=== PATIENT | male | born 1975 | race Caucasian/White ===

== ENCOUNTER → 2017-10-25 09:14 | Outpatient (CLI) | payer OTHER, SELFPAY ==
[2017-10-25 11:32] LABS: Free T3, Triiodothyronine Free 3.46 pg/mL (2.77-5.27); Free T4, Direct Thyroxine 0.87 ng/dL (0.78-2.19)
[2017-10-25 11:45] LABS: Thyroid Stimulating Hormone 1.22 uIU/mL (0.47-4.68)
== END ==
PROVIDERS: PCP Family Medicine; Visit Provider Family Medicine
DX: E04.1 Nontoxic single thyroid nodule (principal)
CPT/HCPCS: 36415; 84439; 84443; 84481

== ENCOUNTER 2018-07-17 09:20 | Day surgery (SDC) | payer OTHER, SELFPAY ==
--- NOTE | 2018-07-17 08:16 | PM.HP.1 ---
History of Present Illness Date Patient Seen: 07/17/18 Chief complaint: [id number] COLONOSCOPY Narrative: 42-year-old male with a family history of colon cancer in multiple relatives including his father at age 50, grandfather age 63, and age 65 who also has a history of colonoscopy in 2016 in [place], [place] with a history of polyps. Patient is now here for colon polyp surveillance. He has no significant past medical history Patient History Family & Social History Family History (Updated 10/12/17 @ 10:50 by Alka Greenfield LPN) Mother Age: 60 Hypertension Father Cancer Grandfather Stroke Grandmother Cancer Grandfather Cancer Grandmother Parkinson's disease Tobacco & Substance use: Smoking Status Never smoker alcohol intake current Meds Home Medications Medication Instructions Recorded Confirmed Type aspirin 81 mg PO QDAY #0 07/18/16 07/17/18 History Allergies Allergy/AdvReac Type Severity Reaction Status Date / Time penicillin G [PENICILLIN G] Allergy Severe turned Verified 07/17/18 09:29 blue per patient Review of Systems Review of Systems All systems reviewed & are unremarkable except as noted in HPI and below Exam Narrative Exam Narrative: General: Patient is overweight, not in apparent distress Cardiovascular: Regular rate and rhythm, no murmurs, rubs, or gallops; no evidence of edema; no palpable abdominal aortic aneurysm Gastrointestinal: Normoactive bowel sounds, soft, nontender, nondistended, no rebound tenderness, no hepatosplenomegaly, no evidence of hernia Assessment & Plan Assessment & Plan narrative: 42-year-old male with a family history of colon cancer in multiple relatives including his father as well as a prior history of colon polyps in 2016 who is here for colon polyp surveillance. Prior colonoscopy record not available for review Regarding the procedure(s), the risks and potential complications, benefits, and alternatives (including not doing the procedure) were discussed with the patient. The risks include but are not limited to bleeding, splenic injury, infection, perforation which may require surgical intervention, missed lesions, and adverse reactions to sedative medicines. After a question and answer period, the patient agreed to proceed with the procedure(s) and gives informed consent.
[2018-07-17] MEDS: SODIUM CHLORIDE 0.9% 1,000 ML 70 ML IV (09:28)
[2018-07-17 09:30] VITALS: BP 128/78; PULSE 59; RESP 16; TEMP 36.9; O2SAT 99; BMI 27.4
--- NOTE | 2018-07-17 10:05 | PM.OP.ENDO ---
Operative Date/Time/Diagnoses Date of procedure: 07/17/18 Procedure Notes Procedure in detail: Surgeon: Saul Ann MD Procedure: Colonoscopy Preoperative diagnosis: Colon polyp surveillance; family history colon cancer in father at age 50 Postoperative diagnosis: Grade 2 internal hemorrhoids Medications: Conscious sedation using 6 mg IV of Midazolam and 100 mcg IV of Fentanyl Preanesthesia Assessment An H and P was performed/updated and the Px?s ASA class is 1. The procedure was discussed in detail with the patient. The potential risks and complications including infection, bleeding, missed lesions, perforation, need for surgery in case of perforation, prolonged hospital stay, and were explained. A brief question and answer period was allotted and once all questions were answered, informed consent was obtained. The patient was brought back to the procedure room and placed on standard monitoring. The patient?s vital signs were monitored continuously throughout the entire procedure. Prior to starting, a timeout was performed to confirm the patient?s identity, allergies, medications, and procedure. Procedure in detail The patient was placed in left lateral decubitus position and once adequate sedation was obtained a ENMA was performed. The digital rectal examination did not reveal any palpable lesions. The tip of the colonoscope was placed in the anal canal and advanced without difficulty all the way to the cecum which was identified by the appendiceal orifice and the ileocecal valve. Careful examination of all maradiaga of the colon was performed with irrigation of any residual stool. The colonic mucosa appeared normal with no evidence of polyps. Retroflexion was performed in the rectum which revealed grade 2 hemorrhoids. The patient tolerated the procedure well and will be brought back to the recovery area to be discharged once criteria are met. The prep was judged to be good/excellent and adequate to identify polyps less than 5 mm. The withdrawal time was 9 minutes. The total physician intraservice time was 14 minutes. Complications There were no complications and estimated blood loss was zero. Recommendations: Resume previous diet Continue outPx medications Repeat colonoscopy in 5 years An emergency contact number was given to the patient for any complications related to the procedure
[2018-07-17] MEDS: fentaNYL 250 MCG/5 ML INJ IV (10:06)
[2018-07-17] MEDS: MIDAZOLAM 5 MG/5 ML VIAL IV ×2 (10:06→10:09)
[2018-07-17 10:22] VITALS: BP 102/63; PULSE 70; RESP 21; TEMP 36.2; O2SAT 95
[2018-07-17 10:27] VITALS: BP 106/64; PULSE 68; RESP 15; O2SAT 96
[2018-07-17 10:32] VITALS: BP 107/63; PULSE 69; RESP 15; O2SAT 96
[2018-07-17 10:49] VITALS: BP 105/67; PULSE 64; RESP 9; O2SAT 98
[2018-07-17 11:00] VITALS: BP 118/71; PULSE 74; RESP 15; TEMP 36.7; O2SAT 98
== END 2018-07-17 11:12 | disposition home or self-care (01) ==
PROVIDERS: PCP Family Medicine; Visit Provider Internal Medicine Gastroenterology
PROC: 0DJD8ZZ Inspection of Lower Intestinal Tract, Via Natural or Artificial Opening Endoscopic (ICD-10-PCS; CPT 45378; principal; 2018-07-17 10:30)
DX: Z86.010 Personal history of colon polyps (principal); Z80.0 Family history of malignant neoplasm of digestive organs; K64.1 Second degree hemorrhoids
CPT/HCPCS: 45378; J2250; J3010

== ENCOUNTER → 2019-09-18 10:40 | Outpatient (CLI) | payer OTHER, SELFPAY ==
[2019-09-18 11:08] LABS: Hematocrit 46.3 % (41-53); Hemoglobin 15.8 g/dL (13.5-17.5); Mean Corpuscular HGB Conc 34.2 % (30-36); Mean Corpuscular Hemoglobin 30.1 PG (26-34); Platelet Count 235 X10^3/uL (150-400); Red Blood Cell Count 5.26 X10^6/uL (4.5-5.9); Red Cell Distribution Width 13.6 % (11.6-14.8); White Blood Cell Count 5.6 X10^3/uL (4.5-11.0)
[2019-09-18 12:06] LABS: Cholesterol 200 mg/dL (140-199); HDL Cholesterol 55 mg/dL (40-60); LDL Cholesterol Calculated 127 mg/dL (<100); Triglycerides 92 mg/dL (35-150)
[2019-09-18 13:00] LABS: Vitamin B12 321 pg/mL (239-931)
== END ==
PROVIDERS: PCP Student in an Organized Health Care Education/Training Program; Referring Provider Student in an Organized Health Care Education/Training Program; Visit Provider Student in an Organized Health Care Education/Training Program
DX: E04.1 Nontoxic single thyroid nodule (principal); F34.1 Dysthymic disorder; F41.1 Generalized anxiety disorder
CPT/HCPCS: 36415; 80061; 82607; 84443; 85027

== ENCOUNTER → 2019-09-22 14:26 | Outpatient (CLI) | payer OTHER, SELFPAY ==
--- NOTE | 2019-09-22 14:27 | DI.US.S_ITS ---
PROCEDURE: US THYROID INDICATIONS: NODULES TECHNIQUE: Real-time scanning was performed of the thyroid gland, with image documentation. COMPARISON: [facility] Ultrasound, US, US THYROID, 09/20/2017, 15:11. [facility], US, THYROID, 07/25/2016, 7:50. FINDINGS: Right: Thyroid lobe measures 5.3 x 1.7 x 2.3 cm, and is homogeneous in echotexture. Multiple sub 5 mm nodules Left: Thyroid lobe measures 4.6 x 1.5 x 1.5 cm, and is homogenous in echotexture. Redemonstrated. Multiple sub 5 mm nodules redemonstrated. Isthmus: 1.0 mm thick. Nodule number: 1 Location: Isthmus Size: Unchanged 0.9 x 0.5 x 1.0 cm. Composition: Solid Echogenicity: Hypoechoic Shape: wider than tall. Margins: Smooth Echogenic foci: None Total points: 4 ACR TI-RADS category: Moderately suspicious IMPRESSION: 1. Multiple sub 5 mm nodules redemonstrated and there has been no change in 1 cm isthmus nodule. Recommend continued followup ultrasound as detailed below. 2. Hypoechoic nodule adjacent to the posterior aspect of the mid right thyroid suspicious for parathyroid adenoma measuring up to 13 mm. Recommend correlation with serum calcium levels and if indicated, nuclear medicine parathyroid imaging could be performed for confirmation. ACR TI-RADS definitions and recommendations: TI-RADS 1 (benign): 0 points. FNA not needed. TI-RADS 2 (not suspicious): 2 points. FNA not needed. TI-RADS 3 (mildly suspicious): 3 points. * FNA if 2.5 cm or larger, follow up if 1.5 cm or larger (at 1, 3, and 5 years). TI-RADS 4 (moderately suspicious): 4-6 points. * FNA if 1.5 cm or larger, follow up if 1 cm or larger (at 1, 2, 3, and 5 years). TI-RADS 5 (highly suspicious): 7 points or more. * FNA if 1 cm or larger, follow up if 0.5 cm or larger (every year for 5 years). Dictated by: Ja ROLAND Interpreted: Sunday Arciniega MD on 09/22/2019 at 16:11 Approved by: Sunday Arciniega M.D. on 09/22/2019 at 17:40
== END ==
PROVIDERS: PCP Student in an Organized Health Care Education/Training Program; Referring Provider Student in an Organized Health Care Education/Training Program; Visit Provider Student in an Organized Health Care Education/Training Program
DX: E04.1 Nontoxic single thyroid nodule (principal)
CPT/HCPCS: 76536

== ENCOUNTER → 2019-09-24 07:16 | Outpatient (CLI) | payer OTHER, SELFPAY ==
[2019-09-25 09:39] LABS: Calcium 9.2 mg/dL (8.7-10.2); Parathyroid Hormone, Intact 48 pg/mL (15-65)
== END ==
PROVIDERS: PCP Student in an Organized Health Care Education/Training Program; Referring Provider Student in an Organized Health Care Education/Training Program; Visit Provider Student in an Organized Health Care Education/Training Program
DX: E21.5 Disorder of parathyroid gland, unspecified (principal)
CPT/HCPCS: 36415; 82310; 83970

== ENCOUNTER → 2020-10-19 13:36 | Outpatient (CLI) | payer OTHER, SELFPAY ==
--- NOTE | 2020-10-19 13:36 | DI.US.S_ITS ---
PROCEDURE: US THYROID INDICATIONS: F/U NODULES TECHNIQUE: Real-time scanning was performed of the thyroid gland, with image documentation. COMPARISON: [facility] Ultrasound, US, US THYROID, 09/20/2017, 15:11. [place], THYROID UPTAKE AND SCAN, 07/25/2016, 8:20. [facility], US, THYROID, 07/25/2016, 7:50. [facility], US, US THYROID, 09/22/2019, 14:44. FINDINGS: Right: Thyroid lobe measures 5.5 x 1.5 x 1.8 cm, and is homogeneous in echotexture. Possible parathyroid adenoma seen on prior examination not definitively seen. Left: Thyroid lobe measures 3.9 x 1.2 x 1.5 cm, and is homogenous in echotexture. Isthmus: 3.1 mm thick. Nodule number: 1 Location: Left isthmus Size: Unchanged to slightly increased at 0.8 x 0.5 x 0.8 cm. Composition: Predominantly solid Echogenicity: Isoechoic Shape: wider than tall. Margins: Smooth Echogenic foci: None Total points: 3 ACR TI-RADS category: Mildly suspicious Nodule number: 2 Location: Left isthmus Size: 0.6 x 0.3 x 0.5 cm. Composition: Predominantly solid Echogenicity: Hypoechoic Shape: wider than tall. Margins: Smooth Echogenic foci: None Total points: 4 ACR TI-RADS category: Moderately suspicious IMPRESSION: 1. There is a new subcentimeter left thyroid nodule and the previously visualized left isthmus nodule is unchanged to slightly increased in size. Given the small size, no additional follow-up is warranted. 2. Possible right parathyroid adenoma seen on prior examination is not definitively seen on today's exam. ACR TI-RADS definitions and recommendations: TI-RADS 1 (benign): 0 points. FNA not needed. TI-RADS 2 (not suspicious): 2 points. FNA not needed. TI-RADS 3 (mildly suspicious): 3 points. * FNA if 2.5 cm or larger, follow up if 1.5 cm or larger (at 1, 3, and 5 years). TI-RADS 4 (moderately suspicious): 4-6 points. * FNA if 1.5 cm or larger, follow up if 1 cm or larger (at 1, 2, 3, and 5 years). TI-RADS 5 (highly suspicious): 7 points or more. * FNA if 1 cm or larger, follow up if 0.5 cm or larger (every year for 5 years). Dictated by: Ja Saucedo RRA Interpreted: Linda Jackson MD on 10/19/2020 at 16:26 Transcribed by: MARY on 10/19/2020 at 16:30 Approved by: Linda Jackson M.D. on 10/19/2020 at 17:45
== END ==
PROVIDERS: PCP Student in an Organized Health Care Education/Training Program; Referring Provider Student in an Organized Health Care Education/Training Program; Visit Provider Student in an Organized Health Care Education/Training Program
DX: E04.2 Nontoxic multinodular goiter (principal)
CPT/HCPCS: 76536

== ENCOUNTER → 2021-03-12 08:26 | Outpatient (CLI) | payer OTHER, SELFPAY ==
[2021-03-12 09:42] LABS: Add Manual Diff / Slide Review NO; Basophils Absolute Auto 0 /uL (0-100); Eosinophils Absolute Auto 0 /uL (0-450); Eosinophils Percent Auto 1.1 % (2-4); Hematocrit 43.1 % (41-53); Hemoglobin 14.6 g/dL (13.5-17.5); Lymphocytes Absolute Auto 1300 /uL (1100-4500); Lymphocytes Percent Auto 36.3 % (25-40); Mean Corpuscular HGB Conc 33.9 % (30-36); Mean Corpuscular Hemoglobin 30.2 PG (26-34); Mean Corpuscular Volume 88.9 fL (80-100); Monocytes Absolute Auto 200 /uL (0-900); Monocytes Percent Auto 5.8 % (3-14); Neutrophils Absolute Auto 1900 /uL (1500-7000); Neutrophils Percent Auto 55.8 % (50-75); Platelet Count 203 X10^3/uL (150-400); Red Blood Cell Count 4.85 X10^6/uL (4.5-5.9); Red Cell Distribution Width 13.4 % (11.6-14.8); White Blood Cell Count 3.5 X10^3/uL (4.5-11.0)
[2021-03-12 09:53] LABS: Hemoglobin A1C% w Est Avg Glu 4.7 % (4.0-6.0)
[2021-03-12 11:05] LABS: Iron 136 ug/dL (49-181)
[2021-03-12 11:19] LABS: HEMOLYSIS < 15 (0-50); Percent Iron Saturation 56 % (20-50); Total Iron Binding Capacity 243 ug/dL (261-462); Transferrin 189 mg/dL (206-381)
[2021-03-12 11:22] LABS: Alanine Aminotransferase 13 IU/L (<50); Albumin 4.4 g/dL (3.5-5.0); Albumin Globulin Ratio 1.8 (1.0-2.8); Alkaline Phosphatase 56 U/L (38-126); Aspartate Aminotransferase 23 IU/L (17-59); BUN Creatinine Ratio 22.8 (6-22); Bilirubin Total 1.2 mg/dL (0.2-1.3); Blood Urea Nitrogen 18 mg/dL (9-20); Calcium 9.8 mg/dL (8.4-10.2); Carbon Dioxide 31 mmol/L (22-32); Chloride 104 mmol/L (98-107); Cholesterol 154 mg/dL (140-199); Estimated Glomerular Filt Rate > 60.0 mL/min (>60); Globulin 2.4 g/dL (1.7-4.1); Glucose 81 mg/dL (70-100); HDL Cholesterol 57 mg/dL (40-60); HEMOLYSIS < 15 (0-50); LDL Cholesterol Calculated 88 mg/dL (<100); Potassium 4.8 mmol/L (3.4-5.1); Sodium 140 mmol/L (137-145); Total Protein 6.8 g/dL (6.3-8.2); Triglycerides 47 mg/dL (35-150); Uric Acid 4.4 mg/dL (3.5-8.5)
[2021-03-12 11:26] LABS: Vitamin D 25 Hydroxy (D3) 48.4 ng/mL (30.0-100.0)
[2021-03-12 11:37] LABS: TSH w/ Reflex to FT4 0.91 uIU/mL (0.47-4.68)
[2021-03-12 11:57] LABS: Ferritin 394 ng/mL (18-464)
[2021-03-12 12:28] LABS: Folate > 20.0 ng/mL (2.76-20.0); Vitamin B12 769 pg/mL (239-931)
[2021-03-13 22:06] LABS: Zinc 88 ug/dL (44-115)
[2021-03-14 16:20] LABS: Selenium 198 ug/L (93-198)
[2021-03-15 11:36] LABS: Vitamin B6 45.9 ug/L (5.3-46.7)
[2021-03-16 05:58] LABS: Magnesium, RBC 5.9 mg/dL (4.2-6.8)
[2021-03-16 10:31] LABS: Vitamin B1 175.6 nmol/L (66.5-200.0)
[2021-03-16 14:36] LABS: Vitamin A 49.8 ug/dL (20.1-62.0)
== END ==
PROVIDERS: PCP Student in an Organized Health Care Education/Training Program; Referring Provider Student in an Organized Health Care Education/Training Program; Visit Provider Student in an Organized Health Care Education/Training Program
DX: D50.9 Iron deficiency anemia, unspecified (principal); E56.9 Vitamin deficiency, unspecified; E66.01 Morbid (severe) obesity due to excess calories; K90.9 Intestinal malabsorption, unspecified; R74.01 Elevation of levels of liver transaminase levels; Z98.84 Bariatric surgery status
CPT/HCPCS: 36415; 80053; 80061; 82306; 82525; 82607; 82728; 82746; 83036; 83540; 83550; 83735; 84207; 84255; 84425; 84443; 84550; 84590; 84630; 85025

== ENCOUNTER → 2022-07-03 16:33 | Outpatient (CLI) | payer OTHER, SELFPAY ==
--- NOTE | 2022-07-03 16:34 | DI.US.S_ITS ---
PROCEDURE: US THYROID INDICATIONS: Re-assess thyroid nodule TECHNIQUE: Real-time scanning was performed of the thyroid gland, with image documentation. COMPARISON: [facility], US, US THYROID, 10/19/2020, 14:59. FINDINGS: Right: Thyroid lobe measures 5.5 x 1.9 x 1.2 cm, and is homogeneous in echotexture. Left: Thyroid lobe measures 5.5 x 1.7 x 1.0 cm, and is homogenous in echotexture. Isthmus: 3 mm thick. Nodule number: 1 Location: Left isthmus lateral Size: 0.8 x 0.8 x 0.7 cm. Composition: Solid Echogenicity: Hypoechoic Shape: wider than tall. Margins: Smooth Echogenic foci: Punctate Total points: 7 ACR TI-RADS category: 5. Sonographic follow-up recommended. Nodule number: 2 Location: Left isthmus medial Size: 0.8 x 0.5 x 0.3 cm. Composition: Predominantly solid Echogenicity: Hypoechoic Shape: wider than tall. Margins: Smooth Echogenic foci: None Total points: 4 ACR TI-RADS category: 4. No follow-up needed given small size. IMPRESSION: Continued sonographic surveillance recommended for a left lateral isthmus nodule above which is stable in size when compared with the prior study. ACR TI-RADS definitions and recommendations: TI-RADS 1 (benign): 0 points. FNA not needed. TI-RADS 2 (not suspicious): 2 points. FNA not needed. TI-RADS 3 (mildly suspicious): 3 points. * FNA if 2.5 cm or larger, follow up if 1.5 cm or larger (at 1, 3, and 5 years). TI-RADS 4 (moderately suspicious): 4-6 points. * FNA if 1.5 cm or larger, follow up if 1 cm or larger (at 1, 2, 3, and 5 years). TI-RADS 5 (highly suspicious): 7 points or more. * FNA if 1 cm or larger, follow up if 0.5 cm or larger (every year for 5 years). Dictated by: Kalyn Verduzco M.D. on 07/04/2022 at 8:32 Approved by: Kalyn Verduzco M.D. on 07/04/2022 at 8:34
== END ==
PROVIDERS: PCP Student in an Organized Health Care Education/Training Program; Referring Provider Student in an Organized Health Care Education/Training Program; Visit Provider Student in an Organized Health Care Education/Training Program
DX: E04.1 Nontoxic single thyroid nodule (principal)
CPT/HCPCS: 76536

== ENCOUNTER → 2023-05-09 13:59 | Outpatient (CLI) | payer OTHER, SELFPAY ==
[2023-05-09 15:51] LABS: Add Manual Diff / Slide Review NO; Basophils Absolute Auto 100 /uL (0-100); Basophils Percent Auto 1.1 % (0-2); Eosinophils Absolute Auto 100 /uL (0-450); Eosinophils Percent Auto 2.7 % (2-4); Hematocrit 41.7 % (41-53); Hemoglobin 14.2 g/dL (13.5-17.5); Lymphocytes Absolute Auto 1600 /uL (1100-4500); Lymphocytes Percent Auto 34.6 % (25-40); Mean Corpuscular HGB Conc 34.1 % (30-36); Mean Corpuscular Hemoglobin 30.2 PG (26-34); Mean Corpuscular Volume 88.5 fL (80-100); Monocytes Absolute Auto 300 /uL (0-900); Monocytes Percent Auto 5.6 % (3-14); Neutrophils Absolute Auto 2500 /uL (1500-7000); Platelet Count 218 X10^3/uL (150-400); Red Blood Cell Count 4.71 X10^6/uL (4.5-5.9); Red Cell Distribution Width 13.3 % (11.6-14.8); White Blood Cell Count 4.5 X10^3/uL (4.5-11.0)
[2023-05-09 16:08] LABS: Alanine Aminotransferase 163 IU/L (<50); Albumin 4.3 g/dL (3.5-5.0); Alkaline Phosphatase 86 U/L (38-126); Aspartate Aminotransferase 72 IU/L (17-59); BUN Creatinine Ratio 23.6 (6-22); Blood Urea Nitrogen 17 mg/dL (9-20); Calcium 9.5 mg/dL (8.4-10.2); Carbon Dioxide 29 mmol/L (22-32); Chloride 104 mmol/L (98-107); Cholesterol 154 mg/dL (140-199); Estimated Glomerular Filt Rate > 60 mL/min (>60); Globulin 2.2 g/dL (1.7-4.1); Glucose 83 mg/dL (70-100); HDL Cholesterol 70 mg/dL (40-60); HEMOLYSIS < 15 (0-50); LDL Cholesterol Calculated 72 mg/dL (<100); Lipase 115 U/L (23-300); Potassium 4.3 mmol/L (3.4-5.1); Sodium 137 mmol/L (137-145); Total Protein 6.5 g/dL (6.3-8.2); Triglycerides 62 mg/dL (35-150)
== END ==
PROVIDERS: PCP Family Medicine; Referring Provider Family Medicine; Visit Provider Family Medicine
DX: R10.11 Right upper quadrant pain (principal); Z90.3 Acquired absence of stomach [part of]; L29.9 Pruritus, unspecified
CPT/HCPCS: 36415; 80053; 80061; 83690; 85025

== ENCOUNTER → 2023-05-21 10:12 | Outpatient (CLI) | payer OTHER, SELFPAY ==
--- NOTE | 2023-05-21 10:12 | DI.US.S_ITS ---
PROCEDURE: US ABDOMEN LIMITED INDICATIONS: RIGHT UPPER QUADRANT PAIN. TECHNIQUE: Real-time focused scanning was performed of the abdomen, with image documentation. COMPARISON: None. FINDINGS: The liver is normal in size and demonstrates no suspicious lesions. Within the right liver, there is a 9 mm nonshadowing nonvascular hyperechoic lesion. The gallbladder appears filled with stones. The gallbladder wall is not thickened, measuring 3 mm or less. No specific pericholecystic fluid is seen. The sonographic Hanna sign is negative. There is no biliary dilatation, the common bile duct measures 5 mm. No significant pancreatic abnormality is seen on these images. IMPRESSION: The gallbladder appears filled with stones. No additional sonographic signs of cholecystitis are seen. No biliary dilatation. 9 mm presumed liver hemangioma incidentally noted on the right. Dictated by: Adán Matos M.D. on 05/21/2023 at 11:56 Approved by: Adán Matos M.D. on 05/21/2023 at 11:57
== END ==
LOC: US 10:12
PROVIDERS: PCP Family Medicine; Referring Provider Family Medicine; Visit Provider Family Medicine
DX: R10.11 Right upper quadrant pain (principal); L29.9 Pruritus, unspecified; Z90.3 Acquired absence of stomach [part of]
CPT/HCPCS: 76705

== ENCOUNTER 2023-06-20 11:23 | Day surgery (SDC) | payer OTHER, SELFPAY ==
[2023-06-13 12:07] VITALS: BMI 21.2
--- NOTE | 2023-06-19 08:10 | PM.PREOP ---
Pre-operative Note Interval Note History & Physical reviewed/Exam performed by Physician: Yes Changes to H&P: No
[2023-06-20] VITALS (7 sets, daily range): BP systolic 124–146; BP diastolic 69–83; PULSE 57–71; RESP 16–28; TEMP 36.6–37; O2SAT 97–100; BMI 21.2
--- NOTE | 2023-06-20 | PATH_ITS ---
[facility] Accession Number: [id number] No. of containers..01 Tissue . 01 Material submitted: . gallbladder - GALLBLADDER . 01 Diagnosis: GALLBLADDER: Chronic cholecystitis with cholelithiasis. No dysplasia or malignancy identified. [facility] 06/25/2023 1238 Local . 01 Electronically signed: . Jama Palma MD, Pathologist NPI- [id number] . 01 Gross description: . Received in formalin, labeled with two patient identifiers and gallbladder, is a 6.5 x 2.8 x 2.4 cm previously opened gallbladder. The serosal surface is jacobson-green with slightly congested serosal vessels. There is also a cauterized liver bed. The 0.4 x 0.3 cm cystic duct is probe-patent and inked blue. The gallbladder wall is uniformly thick, averaging 0.2 cm. The mucosa is jacobson-green, coarsely granular. The gallbladder is filled with a 3.2 x 2.0 x 1.5 cm aggregate of yellow, multifaceted gall stones and approximately 20 mL of brown to green viscid bile. Research Hydraulic Engineer sections submitted in one cassette. ([id number]) /R 06/25/2023 1238 Local . 01 Pathologist provided ICD-10: K80.10 . 01 CPT . 771171 Specimen Comment: A courtesy copy of this report has been sent to [phone] Performed at: [facility] [address] [place] [address] [id number] MD Jama Palma MD Phone: [phone]
[2023-06-20] MEDS: ACETAMINOPHEN 325 MG TABLET 975 MG PO (11:46)
[2023-06-20] MEDS: LACTATED RINGERS 1,000 ML 21 ML IV (11:59)
--- NOTE | 2023-06-20 12:57 | SUR.OPER ---
Supine on padded OR bed, head on pillow, safety belt at thigh, left arm padded and tucked at side. Right arm secured on padded arm board <90 degrees abduction. Legs uncrossed. Padded footboard in place. Tape over blanket to secure lower legs.
[2023-06-20] MEDS: CEFAZOLIN 2 GM/100 ML PREMIX 100 ML IV (13:08)
[2023-06-20] MEDS: BUPIVACAINE 0.25% (PF) VIAL 30 ML INJ (13:09)
--- NOTE | 2023-06-20 13:43 | P.OP_ITS ---
Operative Date/Time/Diagnoses Date of procedure: 06/20/23 Time of procedure: 13:43 Pre-op diagnosis: Biliary colic Post-op diagnosis: same Procedure & Clinicians Procedure: Laparoscopic cholecystectomy Same procedure as scheduled: Yes Indications: 47-year-old man history of sleeve gastrectomy here for laparoscopic cholecystectomy diagnosis biliary colic Surgeon: Mitchel Ramirez Survey Cad Technician: Harshal Richards Anesthesia Type: General Operative Notes Findings: Critical view of safety established. Minimal upper abdominal adhesive tissue No signs of acute cholecystitis Specimen(s): other (Gallbladder) Estimated Blood Loss (mL): 100 Procedure in detail: The patient was placed supine on the table and bilateral lower extremity compression devices were applied. Anesthesia was induced they were intubated with an endotracheal tube and received 2g of Ancef. A time-out was performed. They were prepped and draped in sterile fashion. An infraumbilical incision was made. The fascia was elevated incised and the abdomen was entered atraumatically. A blunt tip 12mm balloon trocar was then inserted, pneumoperitoneum was established and inspection of the abdomen demonstrated no evidence of injury. They were placed head up and right side up and then a 11 mm port was placed high in the epigastrium and two 5mm in the right upper quadrant. The gallbladder was grasped by the fundus and retracted over the liver and retracted laterally by the infundibulum. Using electrocautery the lateral plane between the gallbladder and the liver was opened towards the fundus. The gallbladder was then retracted laterally and the medial plane was developed in the same manner. With the gallbladder mobilized the bottom of the cystic plate was visualized. The hepatocystic triangle was meticulosly skeletonized with blunt dissection of fat and fibrous tissue from both the front and the back. Only two structures were then clearly seen entering the gallbladder the cystic duct and the cystic artery. With the critical view of safety fully established the cystic duct was clipped twice proximally and once distally using the 10 mm Weck hemoclip applied under direct visualization and then sharply divided. The cystic artery was divided in the same fashion. The gallbladder was removed from the liver bed using electro cautery. The liver bed was then inspected for hemostasis and this was achieved. The abdomen was irrigated with sterile saline and inspection was made that showed the clips in good position. The specimen was removed using Endo-Catch. The abdomen was desufflated. The umbilical fascia was closed with 0 Vicryl in a [id number] fashion under direct visualization. Skin incisions were irrigated and closed with 4-0 Monocryl. 30 ml of 0.25% bupivacaine was infiltrated into the subcutaneous tissue of the incisions. The wounds were sealed with Dermabond. Patient emerged from ane sthesia was extubated and transferred to recovery in stable condition. The sponge and instrument count at the end of the operation was correct. Complications: none Post-operative Condition: stable Disposition: same day surgery
[2023-06-20] MEDS: ONDANSETRON 4 MG/2 ML INJ IV (14:04)
[2023-06-20] MEDS: METOCLOPRAMIDE 10 MG/2 ML INJ IV (14:06)
[2023-06-20] MEDS: hydrOXYzine 50 MG/ML INJ 25 MG IM (14:21)
== END 2023-06-20 14:52 | disposition home or self-care (01) ==
PROVIDERS: PCP Family Medicine; Referring Provider Surgery; Visit Provider Surgery
PROC: 0FT44ZZ Resection of Gallbladder, Percutaneous Endoscopic Approach (ICD-10-PCS; CPT 47562; principal; 2023-06-20 13:15)
DX: K80.10 Calculus of gallbladder with chronic cholecystitis without obstruction (principal); Z98.84 Bariatric surgery status
CPT/HCPCS: 47562; J0690; J1100; J1885; J2405; J2704; J2765; J3010; J3410

== ENCOUNTER → 2023-07-06 09:24 | Outpatient (CLI) | payer OTHER, SELFPAY ==
[2023-07-06 10:47] LABS: Alanine Aminotransferase 22 IU/L (<50); Albumin 4.5 g/dL (3.5-5.0); Albumin Globulin Ratio 2.4 (1.0-2.8); Alkaline Phosphatase 74 U/L (38-126); Aspartate Aminotransferase 20 IU/L (17-59); Bilirubin Total 1.1 mg/dL (0.2-1.3); Bilirubin Unconjugated 0.6 mg/dL (0.0-1.1); Globulin 1.9 g/dL (1.7-4.1); HEMOLYSIS < 15 (0-50); Total Protein 6.4 g/dL (6.3-8.2)
[2023-07-06 11:39] LABS: HIV 1 & 2 Ab/Ag 4th Gen Combo NEGATIVE (NEGATIVE); Hep C Virus Ab w/Reflex Quant NEGATIVE s/c (NEGATIVE)
== END ==
PROVIDERS: PCP Family Medicine; Referring Provider Family Medicine; Visit Provider Family Medicine
DX: Z11.59 Encounter for screening for other viral diseases (principal); Z11.4 Encounter for screening for human immunodeficiency virus [HIV]; R79.89 Other specified abnormal findings of blood chemistry
CPT/HCPCS: 36415; 80076; 86803; 87389

== ENCOUNTER → 2024-05-13 16:45 | Outpatient (CLI) | payer OTHER, SELFPAY ==
[2024-05-13 17:21] LABS: Alanine Aminotransferase 19 IU/L (<50); Albumin 4.5 g/dL (3.5-5.0); Albumin Globulin Ratio 2.1 (1.0-2.8); Alkaline Phosphatase 61 U/L (38-126); Aspartate Aminotransferase 23 IU/L (17-59); BUN Creatinine Ratio 22.8 (6-22); Bilirubin Total 0.8 mg/dL (0.2-1.3); Blood Urea Nitrogen 18 mg/dL (9-20); Calcium 9.5 mg/dL (8.4-10.2); Carbon Dioxide 26 mmol/L (22-32); Chloride 103 mmol/L (98-107); Cholesterol 199 mg/dL (140-199); Estimated Glomerular Filt Rate > 60 mL/min (>60); Globulin 2.1 g/dL (1.7-4.1); Glucose 70 mg/dL (70-100); HDL Cholesterol 75 mg/dL (40-60); HEMOLYSIS < 15 (0-50); LDL Cholesterol Calculated 108 mg/dL (<100); Sodium 139 mmol/L (137-145); Total Protein 6.6 g/dL (6.3-8.2); Triglycerides 82 mg/dL (35-150)
== END ==
PROVIDERS: PCP Family Medicine; Referring Provider Family Medicine; Visit Provider Family Medicine
DX: Z00.00 Encounter for general adult medical examination without abnormal findings (principal)
CPT/HCPCS: 36415; 80053; 80061

== ENCOUNTER 2024-09-17 11:44 | Day surgery (SDC) | payer OTHER, SELFPAY ==
[2024-09-17 12:01] VITALS: BP 129/82; PULSE 54; RESP 12; TEMP 36.5; O2SAT 100
[2024-09-17] MEDS: LACTATED RINGERS 1,000 ML 42 ML IV (12:02)
--- NOTE | 2024-09-17 12:05 | PM.HP.IH.1 ---
History of Present Illness History of Present Illness Date Patient Seen: 09/17/24 Chief complaint: Screening Colonoscopy Narrative: Follow-up colonoscopy for family history of colon cancer. Patient's father at age 50 and he subsequently began having frequent colonoscopies, initially up to every year. He has been found to have polyps before and at the last 1 5 years ago. He has not aware that anyone in the family has been tested for the genetics of Medley syndrome/HNPCC. His uncle and aunt both had colon cancer as well and his on a Z only 1 that has survived. [facility] Medical History (Updated 05/13/24 @ 09:32 by Ari Gotti DO) PE (physical exam), annual Pure hypercholesterolemia Cystic thyroid nodule (07/2016) Colon polyps (2015) Chickenpox (1987) Surgical History (Updated 05/13/24 @ 09:36 by Ari Gotti DO) Status post cholecystectomy Hx of colonoscopy with polypectomy (07/07/15) H/O gastric sleeve Status post gastric bypass for obesity Hx of elbow surgery (1984) Hx of vasectomy (2014) History of nasal surgery (10/2013) Status post appendectomy (08/1993) Family History Mother Age: 67 Hypertension Father Cancer Grandfather Stroke Grandmother Cancer Grandfather Cancer Grandmother Parkinson's disease Social History marital status: household members: spouse lives independently: Yes occupational status: employed alcohol intake: current substance use type: does not use Meds Home Medications and Allergies Home Medications ?Medication ?Instructions ?Recorded ?Confirmed ?Type triamcinolone acetonide 0.1 % applic topical 06/20/23 05/13/24 History topical cream cyclobenzaprine 5 mg tablet 5 mg PO DAILY PRN muscle spasm #30 05/13/24 09/17/24 Rx tabs sertraline 100 mg tablet (Zoloft) 150 mg (1.5 x 100 mg) PO DAILY 05/13/24 09/17/24 Rx #135 tabs Allergies Allergy/AdvReac Type Severity Reaction Status Date / Time penicillin G (PENICILLIN G) Allergy Severe turned Verified 09/17/24 12:00 blue per patient Exam Vital Signs (past 8 hours): - 08/06/25 12:01 Temperature 97.7 F Pulse Rate 54 L Respiratory Rate 12 Blood Pressure 129/82 Pulse Oximetry 100 Oxygen Delivery Method Room Air Oxygen Delivery Method Room Air Narrative Exam Narrative: Oropharynx free of lesions Assessment & Plan Assessment & Plan narrative: History of colon polyps need for follow-up colonoscopy. Patient meets criteria for possible HNPCC we should attempt to test his aunt but if not available or in any painful or does not have insurance then it would be reasonable to test the patient himself. Risks, have been explained. Time-Based Coding :: [TOTAL MINUTES] spent with patient and on the chart (including review of chart, obtaining history, exam, reviewing outside data, placing orders, documenting exam and treatment plan, and counseling patient) on [DATE]. PROFEE Full Time Babysitter Document charge(s): No
--- NOTE | 2024-09-17 12:07 | PM.OP.COLON ---
Operative Date/Time/Diagnoses Date of procedure: 09/17/24 Time of procedure: 12:57 Pre-op diagnosis: See indication and findings Post-op diagnosis: same Procedure & Clinicians Study performed: Colonoscopy Same procedure(s) as scheduled: Yes Indications: History of colon polyps and possible personal history of HNPCC Surgeon: Jesse Armstrong Anesthesia Type: Other Procedure Notes Procedure in detail: After informed consent was obtained the patient was placed in left lateral decubitus position. The video colonoscope was introduced the rectum slowly advanced cecum. Preparation was good. On slow withdrawal mucosa was carefully examined. The scope was removed. The patient tolerated procedure well. Blood loss none Complications none Sedation mac Findings 1. Normal colonoscopy to cecum Patient will be set up with consult at genetics department at [facility] to discuss getting genetic testing for HNPCC. If he is able to get though genetic screening then we would base follow-up on the findings. This would include every 2 year colonoscopy if positive an every 5 year colonoscopy if negative. The office will be in touch with getting him scheduled.
[2024-09-17 12:58] VITALS: BP 100/61; PULSE 56; RESP 12; TEMP 36.1; O2SAT 98
[2024-09-17 13:00] VITALS: BP 97/58; PULSE 54; RESP 12; O2SAT 98
[2024-09-17 13:05] VITALS: BP 103/61; PULSE 52; RESP 12; O2SAT 98
[2024-09-17 13:10] VITALS: BP 101/63; PULSE 53; RESP 14; TEMP 36.4; O2SAT 99
[2024-09-17 13:15] VITALS: BP 115/70; PULSE 56; RESP 16; TEMP 36.1; O2SAT 99
== END 2024-09-17 13:26 | disposition home or self-care (01) ==
PROVIDERS: PCP Family Medicine; Referring Provider Internal Medicine Gastroenterology; Visit Provider Internal Medicine Gastroenterology
PROC: 0DJD8ZZ Inspection of Lower Intestinal Tract, Via Natural or Artificial Opening Endoscopic (ICD-10-PCS; CPT 45378; principal; 2024-09-17 13:00)
DX: Z12.11 Encounter for screening for malignant neoplasm of colon (principal); Z80.0 Family history of malignant neoplasm of digestive organs; Z86.0100 Personal history of colon polyps, unspecified
CPT/HCPCS: 45378; J2405; J2704